=== PATIENT | male | born 2005 | race Caucasian/White ===

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

== ENCOUNTER 2024-09-30 08:28 | Outpatient (AMB) | payer BC, SELFPAY ==
--- OUTSIDE RECORDS SUMMARY | 2024-09-30 08:37 | XMS_ITS | Clinical Summary ---
Author Organization [facility] Address [address] [place] [id number] Phone Care Team Providers Care Barrel Coater Name Role Phone Unavailable Primary Care Provider Unavailabl e Allergies Active Allergy Reactions Criticality Noted Date Comments Penicillin V Rash Low Medications FLUoxetine 10 MG capsuleIndicatio ns:Anxiety disorder, unspecified type,Depression, unspecified depression type TAKE 1 CAPSULE BY MOUTH EVERY DAY IN THE MORNING 90 capsule 01/19/2024 Active Active Problems Problem Noted Date Diagnosed Date Multiple nevi 01/05/2024 Assessment & Plan (01/05/2024 12:05 PM EDT): Reviewed use of sunscreen and avoidance of sun in hottest part of day Baseline exam with dermatology in the next year - + FH of melanoma Anxiety disorder 12/30/2022 Overview (01/05/2024): Positive GAD7 on visit 12/2022 Improved on fluoxetine Assessment & Plan (01/05/2024 12:07 PM EDT): Reviewed weaning off SSRI with Jaycob - plan put into AVS for him to follow to get off the medication Will call/message if gets rebound symptoms Assessment & Plan (09/29/2023 5:00 PM EST): Decreased JONI and subjectively doing well on the fluoxetine 10 mg daily Will continue with med and recheck in 3 - 6 months Reviewed that when time is right to stop need to WEAN OFF and not completely stop at once Assessment & Plan (12/30/2022 3:18 PM EDT): Start fluoxetine 10 mg and set up [facility] visit Depression 12/30/2022 Overview (02/26/2023): Positive PHQ9 on visit 01/20/23 - Pt is reporting some minimal improvement in anxiety and depression since starting medication 3-4 weeks ago, but still is struggling with symptoms 02/25/23 - Vsk- Pt reported that his mood has improved over the last couple of weeks crediting it to his new job as well as the medication. Will continue to work on anxiety as pt's fears of making the wrong decision about higher education is keeping him from moving forward despite knowing what he is interested in Assessment & Plan (03/18/2023 10:03 AM EDT): Patient with long history of anxiety and more recent symptoms of depression in the context of interruption of social and academic development due to the COVID pandemic, medical condition that impacts independence (can't drive), parents are older than most of his peer's parents. Patient will benefit from support in managing symptoms of anxiety, increasing self-confidence and self-esteem, developing his talents, and managing his negative and anxious thhoughts. PLAN: Follow up with [facility] and bridge as necessary to outpatient therapy Patient goal is to improve mood and manage anxiety. Behavioral Recommendations: Pt will build confidence so he can try and explore new experiences Pt will learn strategies to manage anxious thoughts and feelings c. Pt will challenge negative thoughts and engage in pos behaviors/ activities to improve his mood. Assessment & Plan (02/26/2023 3:33 PM EDT): Patient with long history of anxiety and more recent symptoms of depression in the context of interruption of social and academic development due to the COVID pandemic, medical condition that impacts independence (can't drive), parents are older than most of his peer's parents. Patient will benefit from support in managing symptoms of anxiety, increasing self-confidence and self-esteem, developing his talents, and managing his negative and anxious thhoughts. PLAN: Follow up with [facility] and bridge as necessary to outpatient therapy Patient goal is to improve mood and manage anxiety. Behavioral Recommendations: Pt will build confidence so he can try and explore new experiences Pt will learn strategies to manage anxious thoughts and feelings c. Pt will challenge negative thoughts and engage in pos behaviors/ activities to improve his mood. Assessment & Plan (01/23/2023 3:55 PM EDT): Patient with long history of anxiety and more recent symptoms of depression in the context of interruption of social and academic development due to the COVID pandemic, medical condition that impacts independence (can't drive), parents are older than most of his peer's parents. Patient will benefit from support in managing symptoms of anxiety, increasing self-confidence and self-esteem, developing his talents, and managing his negative and anxious thhoughts. PLAN: Follow up with [facility] and bridge as necessary to outpatient therapy Patient goal is to improve mood and manage anxiety. Behavioral Recommendations: Pt will build confidence so he can try and explore new experiences Pt will learn strategies to manage anxious thoughts and feelings c. Pt will challenge negative thoughts and engage in pos behaviors/ activities to improve his mood. 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 Has lateral and vertical nystagmus. Legally blind Assessment & Plan (01/05/2024 12:06 PM EDT): Follow up with ophthalmology Legal blind status qualifies as disability Assessment & Plan (12/30/2022 3:17 PM EDT): Follow up with Dr Bruno ophthamology in [place] Assessment & Plan (08/28/2021 4:30 PM EST): Followed by Dr Bruno for vision and wears glasses. Has lateral and vertical nystagmus. Sees Dr Bruno early every fall. Assessment & Plan (09/17/2018 2:15 PM EST): Followed yearly by Dr Bruno. Assessment & Plan (09/15/2017 8:34 AM EST): Followed by Dr Bruno, last seen apr 2017. Wears glasses and vision stable Resolved Problems Problem Noted Date Diagnosed Date Resolved Date Fracture of phalanx of left ring finger 09/30/2022 12/30/2022 Overview (09/30/2022): 09/30/2022 s/p ORIF BMI (body mass index), pedia tric, > 99% for age 0108/28/2021 12/30/2022 Overview (08/28/2021): Discussed wt gain. Pt is working on eating less junk food and getting more exercise. Assessment & Plan (08/28/2021 4:31 PM EST): Discussed wt gain. Pt is working on eating less junk food and getting more exercise. Rhomboid muscle strain, initial encounter 06/25/2018 09/17/2018 Immunizations Immunization Administration Dates Next Due DTaP 5 03/09/2007, 4,2003,05/19,2003 H1N1 09/13/2009,08/02/2009 HPV Vaccine 9 Valent 10/12/2015,06/12/2015 HPV, Quadrivalent 05/05/2014 Hep A, ped/adol 08/07/2015,05/05/2014 Hep B, ped/adol 2003,2003,2003 Hib (HbOC) 02/27/2004 Hib (PRP-T) 2003,2003,2003 IPV 03/09/2007, 4,2003,03/17 Influenza Split 07/15/2012,06/26/2011,05/23/2010 Influenza, injectable, MDCK, preservative free, quadrivalent 07/06/2023,06/20/2022,08/13/2016 Influenza, injectable, quadrivalent 06/12/2015 Influenza, injectable, quadr ivalent, preservative free 05/25/2021,05/18/2020,05/29/2019,06/09,05/31/2017,05/05/2014,06/22/2013 Influenza, injectable, trivalent 009,06/22/2007,07/22/2006,07/23 MMR 01/23/2004 MMRV 03/09/2007 Meningococcal B Trumenba 12/30/2022,08/28/2021 Meningococcal Conj (Menactra) MCV4P 09/22/2019,0 05/05/2014 Pneumococcal Conjugate 07/23/2004,2002,2003,03/17 Tdap 01/05/2024,05/05/2014 Varicella 01/23/2004 Family History Medical History Relation Name Comments ADD / ADHD Brother Andriy Sosa Anxiety disorder Brother Andriy Sosa Hyperlipidemia Father Devin Sosa Skin cancer Maternal Grandfather Diabetes Maternal Grandmother Breast cancer Mother's Sister Ovarian cancer Mother's Sister Melanoma Paternal Grandmother Relation Name Status Comments Brother Andriy Sosa Alive Brother: Ocular Albinism Father Devin Sosa Alive Father: Alive and well Maternal Grandfather Materna l grandfather: Ocular Albinism Maternal Grandmother Alive Materna l aunt: Scoliosis Mother Evie Sosa Alive Mother: Aliv e and well Mother's Sister Other Family history of Melanoma, Family history of Diabetes mellitus, No family history of Obesity, Family history of Hyperlipidemia, No family history of Migraines, No family history of Cancer, Family history of *Heart Disease, Family history of *CVA/Stroke, Family history of Hypertension, Family history of Allergies, Family history of *Thrombophilia, No family history of Developmental dislocation of hip Paternal Grandmother Sister Bam Sosa Alive Sister: Alive a nd well Social History Tobacco Use Types Packs/Day Years Used Date Smoking Tobacco: Never Smokeless Tobacco: Never Tobacco Cessation:Counseling Given: Yes Comments:Never smoker Alcohol Use Standard Drinks/Week Comments No 0 (1 standard drink = 0.6 oz pur e alcohol) Hunger/Food Answer Date Recorded In the last 12 months, did y ou or your family ever eat less than you felt you should because there wasn't enough money for food? No 01/05/2024 Stable Housing Answer Date Recorded Are you worried that in the next 2 months you may not have stable housing? No 01/05/2024 Transportation Concerns Answer Date Rec orded In the last 12 months, have you or your family ever had to go without healthcare because you didn't have a way to get there? No 01/05/2024 Hazards in Home Answer Date Recorded Think about the place you li ve. Do you have problems with any of the following? Pests (mice or roaches), mold, no/not working smoke detectors, water leaks, no window guards. No 2023 Financing Utilities Answer Date Recorde d In the last 12 months, has t he electric, gas, oil, or water company threatened to shut off your services in your home? No 01/05/2024 Safety at Home Answer Date Recorded Are you or your family worried about feeling saf e in your home? No 01/05/2024 Outside Support Answer Date Recorded Do you feel that you need mo re support from other people or programs to help you care for yourself or your family? No 01/05/2024 Understanding Health Concerns Answer Da te Recorded Do you need help understandi ng your or your child's healthcare needs (diagnosis, medications, plan, etc.)? No 01/05/2024 Financing Health Concerns Answer Date R ecorded In the last 12 months, was t here a time when your child needed to see a doctor or get medications or supplies but could not because of cost? No 01/05/2024 Missing School or Work Answer Date Navjot rded Did you or your child miss s chool or work because of a health problem that could have been avoided? No 01/05/2024 Child Education Answer Date Recorded Do you have concerns about y our/your child's learning or behavior in school, preschool, or daycare? No 01/05/2024 Sex and Gender Information Value Date Recorded Sex Assigned at Male 09/22/2019 3:35 PM EST Legal Sex Male 5:20 PM EDT Gender Identity Male 09/22/2019 3:35 PM EST Sexual Orientation Straight 09/22/2019 3: 35 PM EST Last Filed Vital Signs Vital Sign Reading Time Taken Comments Blood Pressure 120/74 01/05/2024 10:39 AM EDT Pulse 71 01/05/2024 10:39 AM EDT Temperature 35.9 ??C (96.6 ??F) 01/05/2024 10:39 AM E DT Respiratory Rate 16 02/09/2018 11:11 AM EDT Oxygen Saturation 98% 09/11/2011 12:00 AM EST Inhaled Oxygen Concentration - - Weight 90.8 kg (200 lb 3.2 oz) 01/05/2024 10:39 AM EDT Height 189.2 cm (6' 2.5 ) 01/05/2024 10:39 AM ED T Body Mass Index 25.36 01/05/2024 10:39 AM EDT Plan of Treatment Health Maintenance Due Date Last Done Comments Influenza Vaccines (#1) 2024 07/06/20, 06/20/2022, 05/25/2021, Additional history exists COVID-19 Vaccine (2023-2 5 season) 2024 07/06/2023, 06/20/2022, 07/18/2021, Additional history exists DTaP,Tdap,and Td Vaccines (8 - Td or Tdap) 01/04/2034 01/05/2024, 05/05/2014, 03/09/2007, Additional history exists Hepatitis B Vaccines Completed 2003, 2003, 2003 HIB Vaccines Completed 02/27/2004, 08/2002, 2003, Additional history exists Pneumococcal Vaccine Completed 07/23/2004, 2003, 2003, Additional history exists IPV Vaccines Completed 03/09/2007, 11/2003, 2003, Additional history exists MMR Vaccines Completed 03/09/2007, 01/23/2004 Varicella Vaccines Completed 03/09/2007, 01/23/2004 Hepatitis A Vaccines Completed 08/07/2015, 05/05/20 14 HPV Vaccines Completed 10/12/2015, 05/19, 05/05/2014 Meningococcal Vaccine Completed 09/22/2019, 014 Men B Vaccine Completed 12/30/2022, 08/28/2021 Insurance [facility] [place] [address] [facility]
--- OUTSIDE RECORDS SUMMARY | 2024-09-30 08:37 | XMS_ITS | Encounter Summary ---
Author Organization [facility] Address [address] [place] [address] Phone Care Team Providers Care Broom Maker Name Role Phone Rahel Caro MD Primary Care Provider Encounter Details Date Type Department Care Team (Late st Contact Info) Description 04/03/[address] [facility] [address] [place] [address] Social History Tobacco Use Types Packs/Day Years Used Date Smoking Tobacco: Never Comments:Never smoker Sex and Gender Information Value Date Recorded Sex Assigned at Male 09/22/2019 3:35 PM EST Legal Sex Male 5:20 PM EDT Gender Identity Male 09/22/2019 3:35 PM EST Sexual Orientation Straight 09/22/2019 3 :35 PM EST documented as of this encounter Plan of Treatment Not on file documented as of this encounter Visit Diagnoses Not on filedocumented in this encounter Care Teams Broom Maker Relationship Specialty Start Date End Date Rahel Caro MD [address] [place] [address] PCP - General Pediatrics 06/18/23 02/24/24 documented as of this encounter
[2024-09-30 08:56] VITALS: BP 110/80; PULSE 77; O2SAT 99
--- NOTE | 2024-09-30 08:56 | MHC.OFFWIV ---
Intake Vital Signs 09/30/24 08:56 Weight 176 lb BP 110/80 Blood Pressure Location Rt brachial Position Sitting Pulse 77 Pulse Source Pulse Oximeter Pulse Oximetry (%) 99 Oxygen Delivery Method Room Air Intake Visit Reasons: EP-abd pain, constipation, excessive urinating Intake Note: Patient here for abdominal pain, tail bone area pain that have been present on and off for about 1 week. Patient Tobacco Use Status: Never used Tobacco Allergies Penicillins [PENICILLINS] Allergy (Mild, Verified 09/30/24 08:57) Rash Do you need a note to return to daycare/school/sports/work: No HPI HPI Comments History of Present Illness Details 19 y/o male patient who presents to the walk in clinic with c/o Abdominal pain associated with constipation for 1 week. Reports that the symptoms have been on/off. [facility] Medical History (Updated 09/30/24 @ 09:17 by Maureen Hampton NP) Constipation Hx of fracture of leg Surgical History Hx of eye surgery Social History Patient Tobacco Use Status: Never used Tobacco Current occupational status: employed Current occupation: [employer]/ right hand dominant Review of Systems Const All systems reviewed & are unremarkable except as noted in HPI and below Physical Exam Vital Signs: Last Vital Signs Pulse 77 09/30/24 08:56 BP 110/80 09/30/24 08:56 Pulse Ox 99 09/30/24 08:56 Oxygen Delivery Method Room Air 09/30/24 08:56 Const General: cooperative and no acute distress Nutritional Appearance: thin Orientation/consciousness: patient oriented x3 GI Inspection: Yes normal to inspection Palpation (GI): Soft to palpation, not firm, Tenderness to palpation present (GI) (Generalized tenderness), no guarding, not rigid, No hepatosplenomegaly present and no hernias Auscultation: Hypoactive bowel sounds present Rectal Exam - Male: Yes deferred Neuro General: patient oriented x3, gait normal and moves all extremities Assessment & Plan Assessment & Plan (1) Constipation: Code(s): K59.00 - Constipation, unspecified Qualifiers: Constipation type: slow transit constipation Qualified Code(s): K59.01 - Slow transit constipation Plan: Ordered SennaKot Ordered Benefiber Advised to increase Fiber intake Increase water intake. Medications: New wheat dextrin (Benefiber Sugar Free (dextrin)) chew thoroughly before swallowing; do not swallow whole 1 tab PO BEDTIME 60 tabs 0RF K59.01 - Slow transit constipation sennosides (Natural Senna Laxative) 8.6 mg PO DAILY 30 tabs 0RF CONSTIPATION K59.01 - Slow transit constipation Coding Level of Care Code Est Pt Level 4 (35192) Diagnoses Slow transit constipation K59.01 Constipation type: slow transit constipation Time Spent (min) 20
== END 2024-09-30 09:20 | disposition home or self-care (01) ==
PROVIDERS: Visit Provider Nurse Practitioner Family
DX: K59.01 Slow transit constipation (principal)

== ENCOUNTER 2024-11-19 13:38 | Outpatient (AMB) | payer BC, SELFPAY ==
--- NOTE | 2024-11-19 14:20 | MHC.PC.OV ---
Vital Signs 11/19/24 14:22 Height 6 ft 2.02 in Weight 185 lb BMI 23.7 BP 130/80 Blood Pressure Location Lt brachial Position Sitting Pulse 69 Pulse Source Pulse Oximeter Temp 97.5 F Temp Source Temporal Artery Scan Pulse Oximetry (%) 97 Oxygen Delivery Method Room Air Intake Visit Reasons: Establish Care Intake Note: Patient is a new patient here to establish care for Anxiety. [facility] . Medical records have been requested and have not received. Cavalry Scout Required: No Corporate Development Analyst: Not Required per policy Accompanied by: Self / Same As Patient Allergies Penicillins [PENICILLINS] Allergy (Mild, Verified 11/19/24 14:36) Rash Medication List - Last Reconciled 11/19/24 by MIRIAM Gilbert No Known Home Meds Tobacco use date assessed: 11/19/24 Dental Screening Dental Screen Date: 11/19/24 Did you have a dental visit in the last 12 months?: Yes Did you have a dental problem in the last 6 months where you did not have access to dental care?: No Was dental information given to patient?: Patient has dentist HPI Establish Care HPI Details [place] [facility] Last visit: not sure Last PE: January he had a physical Specialist: ophthalmology OBGYN:n/a Medications: Family HX: ocular albinism, spasmus nutans mother ocular albinism, Problem: Reports that he does not have issues just establishing care Patient denies shortness of breath, chest pain, heart palpitation and dizziness Denies abdominal pain or change in bowel habits Denies any urinary symptoms PFSH Medical History (Updated 11/28/24 @ 13:13 by MIRIAM Gilbert) Spasmus nutans Ocular albinism History of broken finger Constipation Hx of fracture of leg Surgical History (Updated 11/19/24 @ 14:29 by YOLANDA Tello) History of surgery Hx of eye surgery Family History (Updated 11/28/24 @ 13:26 by MIRIAM Gilbert) Mother Ocular albinism Social History (Updated 11/19/24 @ 14:29 by YOLANDA Tello) Housing: House Alcohol intake: current Alcohol intake frequency: a few times a month Patient Tobacco Use Status: Never used Tobacco e-Cigarette/Vaping Use: Never Used Second Hand Smoke Exposure: No service: No Current occupational status: employed Current occupation: [employer]/ right hand dominant Cognitive needs: No Hearing needs: No Vision needs: Yes (Glasses) Questionnaire PHQ-9 Over the last 2 weeks, how often have you been bothered by any of the following problems? 1. Little interest or pleasure in doing things: not at all 2. Feeling down, depressed, or hopeless: not at all 3. Trouble falling or staying asleep, or sleeping too much: not at all 4. Feeling tired or having little energy: not at all 5. Poor appetite or overeating: not at all 6. Feeling bad about yourself - or that you are a failure or have let yourself or your family down: not at all 7. Trouble concentrating on things, such as reading the newspaper or watching television: not at all 8. Moving or speaking so slowly that other people could have noticed. Or the opposite - being so fidgety or restless that you have been moving around a lot more than usual: not at all 9. Thoughts that you would be better off or of hurting yourself in some way: not at all Total score: 0 Depression Screening Interpretation: Negative Depression Screening Done: Yes Source: Developed by Drs. Torrey Wyatt, Jocelynn Merino, Ramirez Cordova and colleagues, with an educational monet from [employer]. Thrive Questionnaire Date Thrive assessed: 11/19/24 I am a: Patient What is your living situation today?: I have a steady place to live Within the past 12 months, did the food you bought not last and you didn't have the money to get more?: Never true Within the past 12 months, did you worry whether your food would run out before you got money to buy more?: Never true Do you have trouble paying for medicines?: No Do you have trouble getting transportation to medical appointments?: No Do you have trouble paying your heating and electricity bill?: No Do you have trouble taking care of your child, family member or friend?: I choose not to answer this question Do you have trouble with day-to-day activities such as bathing, preparing meals, shopping, managing finances, etc.?: No Are you currently unemployed and looking for a job?: No Are you interested in more education?: I choose not to answer this question Please select the resources that you would like help with: None Currently or been in a relationship where the following occur: No concerns reported THRIVE Score: 0 AUDIT C Alcohol Use Questionnaire (AUDIT-C) 1. How often do you have a drink containing alcohol?: 2-4 times a month 2. How many drinks containing alcohol do you have on a typical day when you are drinking?: 3 or 4 3. How often do you have six or more drinks on one occasion?: Less than monthly Total Score: 4 JONI-7 AMB Questionnaire JONI-7 Date JONI - 7 assessed: 11/19/24 Feeling nervous, anxious, or on edge: 1 = Several days Not being able to stop or control worryin = Not at all Worrying too much about different things: 1 = Several days Trouble relaxin = Not at all Being so restless that it is hard to sit still: 0 = Not at all Becoming easily annoyed or irritable: 0 = Not at all Feeling afraid as if something awful might happen: 0 = Not at all Total JONI-7 score (0-4 normal; 5-9 mild; 10-14 moderate; 15-21 severe): 2 Source: Developed by Drs. Torrey Wyatt, Jocelynn Merino, Ramirez Cordova and colleagues, with an educational monet from [employer]. Physical exam (Primary Care) Vital Signs: Last Vital Signs Temp 97.5 F 11/19/24 14:22 Pulse 69 11/19/24 14:22 BP 130/80 11/19/24 14:22 Pulse Ox 97 11/19/24 14:22 Oxygen Delivery Method Room Air 11/19/24 14:22 BMI result Body Mass Index 23.7 Tobacco/Smoking Status: Tobacco use Status Tobacco use date assessed 11/19/24 11/19/24 14:30 Patient Tobacco Use Status Never used Tobacco 11/19/24 14:30 e-Cigarette/Vaping Use Never Used 11/19/24 14:30 PHQ-9: PHQ-9 Score PHQ-9: Total score 0 11/19/24 14:41 Depression Screening Interpretation: Negative Thrive Assessment: Date of Thrive Assessment Date Thrive assessed 11/19/24 11/19/24 14:30 Currently or been in a relationship where the following occur: No concerns reported Coding Level of Care Code New Pt Level 3 (83464) Diagnoses 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 Follow up with Ophthalmology as scheduled to optimize vision Plan Patient to complete labs as soon as possible for evaluation. Patient to return in 3 months for physical Orders: Orders Comprehensive [place]. Panel Fast 11/19/24 Z00.00 - Encounter for general adult medical examination without abnormal findings Lipid Panel 11/19/24 Z00. - Encounter for general adult medical examination without abnormal findings Vitamin D 25-OH Total 11/19/24 Z00.00 - Encounter for general adult medical examination without abnormal findings Complete Blood Count Auto Diff 11/19/24 Z00. - Encounter for general adult medical examination without abnormal findings UA CC w/rflx Micro + Cult 11/19/24 Z00. - Encounter for general adult medical examination without abnormal findings TSH reflex Free T4 11/19/24 Z00.00 - Encounter for general adult medical examination without abnormal findings
[2024-11-19 14:22] VITALS: BP 130/80; PULSE 69; TEMP 36.4; O2SAT 97; BMI 23.7
--- OUTSIDE RECORDS SUMMARY | 2024-11-19 15:28 | XMS_ITS | Clinical Summary ---
Author Organization [facility] Address [address] [place] [id number] Phone Care Team Providers Care Community Relations Liaison Name Role Phone Unavailable Primary Care Provider [...] and anxious thhoughts. PLAN: Follow up with [facility] and bridge as necessary to outpatient therapy [...] and anxious thhoughts. PLAN: Follow up with [facility] and bridge as necessary to outpatient therapy [...] and anxious thhoughts. PLAN: Follow up with [facility] and bridge as necessary to outpatient therapy [...] Follow up with Dr Bruno ophthamology in [place] Assessment & Plan (08/28/2021 4:30 PM [...] Grandmother Alive Materna l aunt: Scoliosis Mother Evei Sosa Alive Mother: Aliv e and well [...] Men B Vaccine Completed 12/30/2022, 08/28/2021 Insurance [facility] [place] [id number] [facility]
--- OUTSIDE RECORDS SUMMARY | 2024-11-19 15:28 | XMS_ITS | Encounter Summary ---
Author Organization [facility] Address [address] [place] [address] Phone Care Team Providers Care Embossograph Operator Name Role Phone Rahel Caro MD Primary Care Provider Encounter Details Date Type Department Care Team (Late st Contact Info) Description 04/03/2017 Conversion Encounter [facility] [address] [place] [address] Social History Tobacco Use Types Packs/Day Years [...] on filedocumented in this encounter Care Teams Embossograph Operator Relationship Specialty Start Date End Date Rahel Caro MD [address] [place] [address] PCP - General Pediatrics 06/18/23 02/24/24 documented as of this encounter
== END 2024-11-19 14:49 | disposition home or self-care (01) ==
LOC: HO.HMCH 13:38
PROVIDERS: PCP Pediatrics
DX: E70.319 Ocular albinism, unspecified (principal); F98.4 Stereotyped movement disorders

== ENCOUNTER → 2024-11-19 13:38 | Outpatient (BNVA) | payer BC, SELFPAY | PROVIDERS: PCP Pediatrics ==

== ENCOUNTER 2025-01-04 08:30 | Emergency (ER) | payer BC, SELFPAY ==
--- NOTE | 2025-01-04 | ECG_ITS ---
Test Reason : CHEST PAIN Blood Pressure : */* mmHG Vent. Rate : 62 BPM Atrial Rate : 62 BPM P-R Int : 130 ms QRS Dur : 102 ms QT Int : 386 ms P-R-T Axes : 9 78 53 degrees QTcB Int : 391 ms Normal sinus rhythm Normal ECG No previous ECGs available Referred By: Generic ED Physician Electronically Signed By: Adryan Leal
--- NOTE | ~2025-01-04 | XR_ITS ---
EXAMINATION: XR CHEST 1 VIEW HISTORY: chest pain COMPARISON: There are no prior studies for comparison. FINDINGS: A single AP portable view of the chest performed at 9:23 AM is submitted. The lungs are expanded and clear. There is no pleural effusion, pneumothorax, or pulmonary vascular congestion. The heart is normal in size. The bones are intact. XR/XR chest 1V IMPRESSION: Clear lungs. Electronically signed by: Torrey Paredes MD 01/04/2025 09:27 AM EDT
[2025-01-04 08:49] VITALS: BP 115/72; PULSE 61; RESP 18; TEMP 36.4; O2SAT 98; BMI 25.3
[2025-01-04 09:09] LABS: MANUAL DIFF FLAG NO
[2025-01-04 09:10] LABS: Basophils Percent Auto 0.8 % (0-2); Eosinophils Absolute Auto 0.1 X10*3/uL (0.0-0.4); Eosinophils Percent Auto 2.3 % (0-4); Hematocrit 41.8 % (42.0-52.0); Hemoglobin 14.9 g/dl (14.0-18.0); Lymphocytes Absolute Auto 1.9 X10*3/uL (1.2-4.9); Mean Corpuscular HGB Conc 35.6 g/dl (31.0-36.0); Mean Corpuscular Hemoglobin 29.6 pg (27.0-33.0); Mean Corpuscular Volume 83.1 fL (80.0-98.0); Mean Platelet Volume 10.3 fL (9.4-12.4); Monocytes Absolute Auto 0.3 X10*3/uL (0.1-1.2); Monocytes Percent Auto 7.7 % (2-11); Neutrophils Absolute Auto 1.5 x10*3/uL (2.0-8.3); Neutrophils Percent Auto 39.2 % (45-73); Platelet Count 199 X10*3/uL (160-400); Red Blood Count 5.03 X10*6/uL (4.60-5.80); Red Cell Distribution Width 12.4 % (11.0-16.0); White Blood Count 3.9 X10*3/uL (4.8-10.8)
--- NOTE | 2025-01-04 09:13 | ED_ITS ---
HPI - Chest Pain General Chief Complaint: Chest Pain Stated Complaint: Chest pain L side Time Seen by Provider: 01/04/25 08:56 Source: patient and family Mode of arrival: ambulatory Limitations: no limitations History of Present Illness ED Provider: DR. Thompson HPI narrative: 19-year-old male came in for evaluation of left-sided chest pain started since last night, pain has been constant localized to the left side of the chest with no radiation, pain is worse when taking a deep breath or moving his chest, no strenuous activity, no heavy lifting. No recent travel, no lower extremity swelling or tenderness. reports smoking marijuana no using any other drugs. Related Data Home Medications ?Medication ?Instructions ?Recorded ?Confirmed No Known Home Meds 11/19/24 11/19/24 Allergies Allergy/AdvReac Type Severity Reaction Status Date / Time Penicillins [PENICILLINS] Allergy Mild Rash Verified 01/04/25 08:52 Review of Systems 2 Review of Systems: All other systems are reviewed and are negative Constitutional: Reports as per HPI and Reports no additional constitutional complaints Eyes: Reports as per HPI and Reports no additional eye complaints Reports system reviewed and no additional complaints, except as documented Cardiovascular: Reports as per HPI and Reports no additional cardiovascular complaints Respiratory: Reports as per HPI and Reports no additional respiratory complaints Gastrointestinal: Reports as per HPI and Reports no additional gastrointestinal complaints Genitourinary: Reports no additional female genitourinary complaints Musculoskeletal: Reports no additional musculoskeletal complaints Skin/Breast: Reports system reviewed and no additional complaints, except as docu Psychiatric: Reports no additional psychiatric complaints Endocrine: Reports no additional endocrine complaints Hematologic/Lymphatic: Reports no additional hematologic/lymphatic complaints Allergic/Immunologic: Reports no additional allergic/immunologic complaints Reports system reviewed and no additional complaints, except as documented and Reports Abnormal speech present [facility] Past Medical History Medical History Spasmus nutans Ocular albinism History of broken finger Constipation Hx of fracture of leg Surgical History History of surgery Hx of eye surgery Family History Family History Mother Ocular albinism Social History Social History Housing: House Alcohol intake: current Alcohol intake frequency: holidays/special occasions only Patient Tobacco Use Status: Never used Tobacco Smoked in Last 30 Days: No e-Cigarette/Vaping Use: Never Used Second Hand Smoke Exposure: No Use of substances other than those prescribed or required for medical reasons: Yes Substance Use Type: Marijuana Advance Directives: No Advance Directives Information Provided: No Do you have a plan to hurt others: No Plan service: No Current occupational status: employed Current occupation: [employer]/ right hand dominant Cognitive needs: No Hearing needs: No Vision needs: Yes (Glasses) Physical Exam 2 Vital Signs: Vital Signs: Last Vital Signs Temp 97.5 F 01/04/25 08:49 Pulse 61 01/04/25 08:49 Resp 18 01/04/25 08:49 BP 115/72 01/04/25 08:49 Pulse Ox 98 01/04/25 08:49 O2 Del Method Room Air 01/04/25 08:49 BMI result Body Mass Index 25.3 Vital signs have been reviewed and appear to be correct. Blood pressure elevated. Heart rate normal. Respiratory rate normal. Temperature normal. Oxygen saturation normal. Appearance: Alert. Oriented X3. No acute distress. Head: Normal external exam. Normocephalic. Atraumatic. No Bravo signs noted. No raccoon eyes noted Eyes: PERRLA. EOMI. Conjunctiva and sclera normal. Eyelids normal. ENT: TM's Normal. Pharynx normal. Uvula midline. Moist mucous membranes. No trismus noted. No drooling noted. No muffled voice noted. Neck: Normal inspection. Neck supple. FROM. No adenopathy. Thyroid Normal. No meningeal signs. No neck mass noted. CVS: Normal heart rate and rhythm. Heart sound normal. No murmurs noted. Pulses normal throughout. Respiratory: No respiratory distress. Painless inspiration. Breath sounds normal. No wheezes/rales/rhonchi noted. Chest nontender. No accessory muscle usage noted or decreased air movement noted. Abdomen: Soft and nontender. Bowel sounds normal in all 4 quadrants. No distention noted. No organomegaly noted. No visible injury noted. Back: No CVA tenderness. Full range of motion noted. Skin: Skin warm and dry. Normal skin color. Normal skin turgor. No rashes/lesions/lacerations noted. Extremities: No lower extremity edema. Extremities exhibit normal range of motion. Extremities nontender. Neuro: Oriented X 3. Cranial nerve exam: II-XII are grossly intact No motor deficit. No sensory deficit. Reflexes normal. Course Reevaluation(s) Reevaluation #1: Left-sided chest pain improved with ibuprofen. Unremarkable labs, EKG reveals no acute ischemic changes. Time: 12:00 Medical Decision Making Differential Diagnosis Differential Diagnoses: The differential diagnosis associated with the presentation includes ( ACS, pulmonary embolism, pleurisy, pneumonia, pneumothorax, pleural effusion, Chest wall pain.) Admission/Observation Consideration of admission/observation: Escalation of care including admission/observation considered Lab Data MDM Lab Attestation statement: I reviewed the patient's lab results. 01/04/25 09:05 01/04/25 09:05 Labs: Lab Results 01/04/25 Range/Units 09:05 WBC 3.9 L (4.8-10.8) X10*3/uL RBC 5.03 (4.60-5.80) X10*6/uL Hgb 14.9 (14.0-18.0) g/dl Hct 41.8 L (42.0-52.0) % MCV 83.1 (80.0-98.0) fL MCH 29.6 (27.0-33.0) pg MCHC 35.6 (31.0-36.0) g/dl RDW 12.4 (11.0-16.0) % Plt Count 199 (160-400) X10*3/uL MPV 10.3 (9.4-12.4) fL Immature Gran % (Auto) 0.0 (0.0-0.4) % Neut % (Auto) 39.2 L (45-73) % Lymph % (Auto) 50.0 H (20-40) % [place] % (Auto) 7.7 (2-11) % Eos % (Auto) 2.3 (0-4) % Baso % (Auto) 0.8 (0-2) % Lymph # (Auto) 1.9 (1.2-4.9) X10*3/uL [place] # (Auto) 0.3 (0.1-1.2) X10*3/uL Eos # (Auto) 0.1 (0.0-0.4) X10*3/uL Baso # (Auto) 0.0 (0.0-0.2) X10*3/uL Abs Immat Gran (auto) 0.00 (0.00-0.03) X10*3/uL Absolute Neuts (auto) 1.5 L (2.0-8.3) x10*3/uL Absolute Nucleated RBC 0.000 (0.0-0.012) X10*3/uL Nucleated RBC % (auto) 0.0 (0.0-0.2) /100WBC Independent Interpretation I performed an independent interpretation of an: EKG ( Normal sinus rhythm at 62 beats per minutes, normal intervals, no ST-T changes.) and Plain X-Ray ( Chest: No acute intrathoracic pathology.) Radiology Impression Discussion of test interpretation with radiology: I have reviewed the radiologist's reading. Scores Heart Score History: -0- slightly suspicious ECG: -0- normal Age: -0- < or = 45 Risk factory: -0- no risk factors known Troponin: -0- < or = normal limit Score: 0 Risk: 1.7% Discharge Plan Discharge Clinical Impression: Chest pain Patient Disposition: Home, Self-Care Instructions: Chest Pain (ED) Prescriptions: No Action No Known Home Meds Referrals: Oren Rojo FNP-C [Primary Care Provider] - Print Language: Luxembourgish
--- OUTSIDE RECORDS SUMMARY | 2025-01-04 09:23 | XMS_ITS | Clinical Summary ---
Author Organization [facility] Address [address] [place] [phone] Phone Care Team Providers Care Distribution Center Assistant Name Role Phone Unavailable Primary Care Provider [...] and anxious thhoughts. PLAN: Follow up with [facility] and bridge as necessary to outpatient therapy [...] and anxious thhoughts. PLAN: Follow up with [facility] and bridge as necessary to outpatient therapy [...] and anxious thhoughts. PLAN: Follow up with [facility] and bridge as necessary to outpatient therapy [...] Follow up with Dr Bruno ophthamology in [place] Assessment & Plan (08/28/2021 4:30 PM EST): [...] Rhomboid muscle strain, initial encounter 06/25/2018 09/17/2018 Encounters Date Type Department Care Team Description 12/09/2024 Telephone [facility] - [address] [address] Ema Wallace MD Medical Records from Last 3 Months Immunizations Immunization Administration Dates Next Due DTaP [...]
--- OUTSIDE RECORDS SUMMARY | 2025-01-04 09:23 | XMS_ITS | Encounter Summary ---
Author Organization [facility] Address [address] [place] [address] Phone Care Team Providers Care Technical Solution Architect Name Role Phone Rahel Caro MD Primary Care Provider [phone] Encounter Details Date Type Department Care Team (Late st Contact Info) Description 04/03/2017 Conversion Encounter [facility] [address] [place] [address] Social History Tobacco Use Types Packs/Day Years Used Date Smoking Tobacco: Never Comments:Never smoker Sex and Gender Information Value Date Recorded Sex Assigned at Male 09/22/2019 3:35 PM EST Legal Sex Male 5:20 PM EDT Gender Identity Male 09/22/2019 3:35 PM EST Sexual Orientation Straight 09/22/2019 3: 35 PM EST documented as of this encounter Plan of Treatment Not on file documented as of this encounter Visit Diagnoses Not on filedocumented in this encounter Care Teams Technical Solution Architect Relationship Specialty Start Date End Date Rahel Caro MD [address] [place] [address] PCP - General Pediatrics 06/18/23 02/24/24 documented as of this encounter
[2025-01-04 09:24] LABS: Anion Gap 12 (12-20); Blood Urea Nitrogen 15 mg/dL (9-16); Calcium 9.5 mg/dL (8.4-10.2); Carbon Dioxide 30 mmol/L (22-29); Chloride 104 mmol/L (96-108); Creatinine Clr Calc Pharmacy 159.8; Estimated Glomerular Filt Rate > 60; Glucose Random 88 mg/dL (60-115); Potassium 3.7 mmol/L (3.3-5.1); Sodium 142 mmol/L (135-145)
[2025-01-04 09:34] LABS: Troponin-I High Sensitivity < 2.7 ng/L (<3.5-35.0)
[2025-01-04] MEDS: Ibuprofen 600 MG TABLET PO (09:41)
--- NOTE | 2025-01-04 09:48 | PC.NURSE ---
patient a&ox3, labs drawn, ekg performed, cardiac care unit nurse applied, cxr performed, pt medicated for pain per order, family at bedside, call silverman within reach, plan of care ongoing
[2025-01-04 09:49] LABS: D Dimer High Sensitivity < 150 NG/ML
[2025-01-04 11:34] VITALS: BP 109/61; PULSE 58; RESP 16; TEMP 36.7; O2SAT 96
[2025-01-04 11:50] VITALS: BP 118/69; PULSE 54; RESP 18; O2SAT 97
--- NOTE | 2025-01-04 11:51 | PC.NURSE ---
patient a&ox3, vss, court monitor intact- snr on monitor, pt states his pain remains the same around 5-01/25, call silverman within reach, plan of care ongoing
[2025-01-04 12:24] LABS: Troponin-I High Sensitivity < 2.7 ng/L (<3.5-35.0)
[2025-01-04 13:46] VITALS: BP 110/66; PULSE 62; RESP 18; TEMP 36.6; O2SAT 97
== END 2025-01-04 13:46 | disposition home or self-care (01) ==
PROVIDERS: Emergency Provider Emergency Medicine
DX: R07.89 Other chest pain (principal); Z79.899 Other long term (current) drug therapy
CPT/HCPCS: 36415; 71045; 80048; 84484; 85025; 85379; 93005; 99283; 99285

== ENCOUNTER → 2025-01-04 08:35 | Outpatient (BNV) | payer BC, SELFPAY | PROVIDERS: Emergency Provider Emergency Medicine; Visit Provider Internal Medicine Cardiovascular Disease | DX: R07.9 Chest pain, unspecified (principal) | CPT/HCPCS: 93010 ==

== ENCOUNTER → 2025-01-04 09:19 | Outpatient (BNV) | payer BC, SELFPAY | PROVIDERS: Emergency Provider Emergency Medicine; Visit Provider Radiology Diagnostic Radiology | DX: R07.9 Chest pain, unspecified (principal) | CPT/HCPCS: 71045 ==

== ENCOUNTER 2025-04-14 13:36 | Outpatient (AMB) | payer BC, SELFPAY ==
[2025-04-14 13:48] VITALS: BP 120/60; PULSE 74; RESP 18; TEMP 36.3; O2SAT 96; BMI 24.7
--- NOTE | 2025-04-14 13:48 | A.OFFPC_ITS ---
Vital Signs 04/14/25 13:48 Height 6 ft 2 in Weight 192 lb 4 oz BMI 24.7 BP 120/60 Blood Pressure Location Rt brachial Position Sitting Respiration 18 Pulse 74 Pulse Source Pulse Oximeter Temp 97.3 F Temp Source Temporal Artery Scan Pulse Oximetry (%) 96 Oxygen Delivery Method Room Air Intake Visit Reasons: Annual Exam Office Machinery Or Equipment Installer Required: No Accompanied by: Self / Same As Patient Allergies Penicillins (PENICILLINS) Allergy (Mild, Verified 04/14/25 14:18) Rash Medication List - Last Reconciled 04/14/25 by MIRIAM Gilbert No Known Home Meds Tobacco use date assessed: 04/14/25 Dental Screening Dental Screen Date: 04/14/25 Did you have a dental visit in the last 12 months?: Yes Did you have a dental problem in the last 6 months where you did not have access to dental care?: No Was dental information given to patient?: Patient has dentist HPI Annual Exam HPI Details The patient is a 20-year-old male presenting for annual physical Dentist:up to date Eye: a little over a year-up to date Snellen: Right: Left: Corrected vision: yes glasses STI screening: n/a Colonoscopy:n/a Pap Smer:n/a PHQ-9: Flu:usually get this yearly COVID: x4 Tdap: 2023 Diet:regular, reports that he could eat out less, three meals a day Exercise: Reports going for lot of walks and bike rides The patient is a 20-year-old male presenting for a wellness visit. He has not completed his preordered labs as yet. Blood work from ER visit discussed with patient. Reports going to the emergency room due to chest pain while he was at work. The patient experienced a sharp pain in the chest while at work, which led to a hospital visit where it was diagnosed as a muscle strain. The pain was concerning due to its location, prompting the hospital visit. The patient has not completed the comprehensive lab work ordered previously, which includes cholesterol and liver function tests. The patient is advised to complete these labs to provide a more comprehensive health assessment. The patient reports smoking marijuana daily, typically one blunt at night, and consuming alcohol occasionally, primarily on weekends. He maintains a diet that could be improved by reducing eating out and reports regular physical activity through walking and biking. 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 [facility] Medical History Spasmus nutans Ocular albinism History of broken finger Constipation Hx of fracture of leg Surgical History History of surgery Hx of eye surgery Family History Mother Ocular albinism Social History Housing: House Alcohol intake: current Alcohol intake frequency: holidays/special occasions only Patient Tobacco Use Status: Never used Tobacco e-Cigarette/Vaping Use: Never Used Second Hand Smoke Exposure: No Substance Use Type: Marijuana service: No Current occupational status: employed Current occupation: [employer]/ right hand dominant Cognitive needs: No Hearing needs: No Vision needs: Yes (Glasses) Questionnaire PHQ-9 Over the last 2 weeks, how often have you been bothered by any of the following problems? 1. Little interest or pleasure in doing things: not at all 2. Feeling down, depressed, or hopeless: not at all 3. Trouble falling or staying asleep, or sleeping too much: not at all 4. Feeling tired or having little energy: not at all 5. Poor appetite or overeating: not at all 6. Feeling bad about yourself - or that you are a failure or have let yourself or your family down: not at all 7. Trouble concentrating on things, such as reading the newspaper or watching television: not at all 8. Moving or speaking so slowly that other people could have noticed. Or the opposite - being so fidgety or restless that you have been moving around a lot more than usual: not at all 9. Thoughts that you would be better off or of hurting yourself in some way: not at all Total score: 0 Depression Screening Interpretation: Negative Depression Screening Done: Yes Source: Developed by Drs. Torrey Wyatt, Jocelynn Merino, Ramirez Cordova and colleagues, with an educational monet from [employer]. Thrive Questionnaire Date Thrive assessed: 04/14/25 I am a: Patient What is your living situation today?: I have a steady place to live Within the past 12 months, did the food you bought not last and you didn't have the money to get more?: Never true Within the past 12 months, did you worry whether your food would run out before you got money to buy more?: Never true Do you have trouble paying for medicines?: No Do you have trouble getting transportation to medical appointments?: No Do you have trouble paying your heating and electricity bill?: No Do you have trouble taking care of your child, family member or friend?: I choose not to answer this question Do you have trouble with day-to-day activities such as bathing, preparing meals, shopping, managing finances, etc.?: No Are you currently unemployed and looking for a job?: No Are you interested in more education?: I choose not to answer this question Please select the resources that you would like help with: None Currently or been in a relationship where the following occur: No concerns reported THRIVE Score: 0 AUDIT C Alcohol Use Questionnaire (AUDIT-C) 1. How often do you have a drink containing alcohol?: 2-4 times a month 2. How many drinks containing alcohol do you have on a typical day when you are drinking?: 3 or 4 3. How often do you have six or more drinks on one occasion?: Less than monthly Total Score: 4 JONI-7 AMB Questionnaire JONI-7 Date JONI - 7 assessed: 04/14/25 Feeling nervous, anxious, or on edge: 1 = Several days Not being able to stop or control worryin = Not at all Worrying too much about different things: 1 = Several days Trouble relaxin = Not at all Being so restless that it is hard to sit still: 0 = Not at all Becoming easily annoyed or irritable: 0 = Not at all Feeling afraid as if something awful might happen: 0 = Not at all Total JONI-7 score (0-4 normal; 5-9 mild; 10-14 moderate; 15-21 severe): 2 Source: Developed by Drs. Torrey Wyatt, Jocelynn Merino, Ramirez Cordova and colleagues, with an educational monet from [employer]. Review of Systems Const Denies headache(s) Eyes Denies loss of vision ENT Denies vertigo, Denies dizziness, Denies headache(s) and Denies sore throat Card Denies chest pain, Denies leg edema and Denies lightheadedness Resp Denies cough, Denies hemoptysis and Denies wheezing GI Denies abdominal pain, Denies melena, Denies constipation, Denies diarrhea and Denies vomiting Denies dysuria, Denies urinary frequency and Denies urinary urgency Musc Denies arthralgias, Denies joint swelling, Denies numbness and Denies tingling Neuro Denies Abnormal speech present, Denies behavioral changes, Denies vertigo, Denies dizziness, Denies headache(s), Denies loss of vision, Denies memory loss, Denies numbness and Denies tingling Psych Denies anxiety, Denies behavioral changes, Denies depression, Denies memory loss and Denies panic attacks [place]/Lymph Denies easy bleeding and Denies easy bruising Aller/Immun Denies wheezing Physical exam (Primary Care) Vital Signs: Last Vital Signs Temp 97.3 F 04/14/25 13:48 Pulse 74 04/14/25 13:48 Resp 18 04/14/25 13:48 BP 120/60 04/14/25 13:48 Pulse Ox 96 04/14/25 13:48 Oxygen Delivery Method Room Air 04/14/25 13:48 BMI result Body Mass Index 24.7 Tobacco/Smoking Status: Tobacco use Status Tobacco use date assessed 04/14/25 04/14/25 13:54 Patient Tobacco Use Status Never used Tobacco 04/14/25 13:54 e-Cigarette/Vaping Use Never Used 04/14/25 13:54 PHQ-9: PHQ-9 Score PHQ-9: Total score 0 04/14/25 14:19 Depression Screening Interpretation: Negative Thrive Assessment: Date of Thrive Assessment Date Thrive assessed 04/14/25 04/14/25 13:54 Currently or been in a relationship where the following occur: No concerns reported Const General: healthy appearing, no acute distress, alert and awake Nutritional Appearance: well nourished Orientation/consciousness: oriented to person, oriented to place and oriented to time HENMT Ears: TM's normal bilaterally General nose exam: Normal nasal mucous membranes and turbinates present Eyes Conjunctivae: conjunctivae normal Sclerae: sclerae normal Pupils: Equal, round and reactive pupils present Neck Neck: Yes no lymphadenopathy and Yes no JVD Thyroid: Thyroid normal Carotids: no bruits Resp Effort & Inspection: normal respiratory effort and not tachypneic Auscultation: no crackles, no rales, no rhonchi and no wheezes Cardio Rate: regular rate Rhythm: regular rhythm Heart sounds: no murmurs and normal S1 and S2 GI Palpation (GI): Soft to palpation, nontender, no hepatomegaly and no splenomegaly Auscultation: normal bowel sounds Skin General skin exam: no rashes or lesions noted and dry skin Neuro General: oriented to person, oriented to place and oriented to time Cranial nerves: Yes Equal, round and reactive pupils present Speech: No Abnormal speech present Gait exam (Neuro): Normal gait present Motor exam (neuro): no tremor noted Extrem Right upper extremity: full ROM Left upper extremity: full ROM Right lower extremity: full ROM; no edema Left lower extremity: full ROM; no edema Psych Mental Status: mental status grossly normal Speech and movement: Normal speech and movement present Affect: normal affect Attitude: cooperative Thought process: Normal thought process present Results Reviewed Results Reviewed: Laboratory Tests 01/04/25 01/04/25 09:05 11:49 WBC 3.9 L RBC 5.03 Hgb 14.9 Hct 41.8 L MCV 83.1 MCH 29.6 MCHC 35.6 RDW 12.4 Plt Count 199 MPV 10.3 Immature Gran % (Auto) 0.0 Neut % (Auto) 39.2 L Lymph % (Auto) 50.0 H [place] % (Auto) 7.7 Sodium 142 Potassium 3.7 Chloride 104 Carbon Dioxide 30 H Anion Gap 12 BUN 15 Creatinine 0.85 Estim Creat Clear Calc 159.8 Estimated GFR > 60 Random Glucose 88 Calcium 9.5 Troponin I High Sens < 2.7 < 2.7 Coding Level of Care Code Est Pt Prev Care [id number]([id number]) Diagnoses Annual physical exam Z00.00 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 Encouraged to complete preordered labs to further evaluate. Patient will be starting school this semester. T-spot added to labs incase his school requires it. 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 Maintain adequate hydration. Plan Encouraged the patient to complete preordered labs for a more complete asse ssment of his health. Orders: Orders T Spot TB 04/14/25 Z11.1 - Encounter for screening for respiratory tuberculosis
--- OUTSIDE RECORDS SUMMARY | 2025-04-14 14:22 | XMS_ITS | Clinical Summary ---
Author Organization [facility] Address [address] [place] [id number] Phone Care Team Providers Care Associate Professor Of Biblical Studies Name Role Phone Unavailable Primary Care Provider [...] Follow up with Dr Bruno ophthamology in [place] Assessment & Plan (08/28/2021 4:30 PM EST): [...] 71 01/05/2024 10:39 AM EDT Temperature 35.9 C (96.6 F) 01/05/2024 10:39 AM EDT Respiratory Rate 16 02/09/2018 11:11 AM EDT Oxygen Saturation 98% 09/11/2011 12:00 AM EST Inhaled Oxygen Concentration - - Weight 90.8 kg (200 lb 3.2 oz) 01/05/2024 10:39 AM EDT Height 189.2 cm (6' 2.5 ) 01/05/2024 10:39 AM ED T Body Mass Index 25.36 01/05/2024 10:39 AM EDT Plan of Treatment Health Maintenance Due Date Last Done Comments COVID-19 Vaccine (2023- 5 season) 2024 07/06/2023, 06/20/2022, 07/18/2021, Additional history exists Influenza Vaccines (#1) 2025 07/06/20, 06/20/2022, 05/25/2021, Additional history exists DTaP,Tdap,and Td Vaccines (8 [...]
--- OUTSIDE RECORDS SUMMARY | 2025-04-14 14:22 | XMS_ITS | Encounter Summary ---
Author Organization [facility] Address [address] [place] [address] Phone Care Team Providers Care Crm Marketing Manager Name Role Phone Rahel Caro MD Primary Care Provider Encounter Details Date Type Department Care Team (Late st Contact Info) Description 04/03/2017 Conversion Encounter [facility] [address] [place] [address] Social History Tobacco Use Types Packs/Day Years [...] on filedocumented in this encounter Care Teams Crm Marketing Manager Relationship Specialty Start Date End Date Rahel Caro MD [address] [place] [address] PCP - General Pediatrics 06/18/23 02/24/24 documented as of this encounter
== END 2025-04-14 14:47 | disposition home or self-care (01) ==
LOC: HO.HMCH 13:37
DX: Z00.00 Encounter for general adult medical examination without abnormal findings (principal); E70.319 Ocular albinism, unspecified; F98.4 Stereotyped movement disorders

== ENCOUNTER 2025-06-10 08:24 | Outpatient (AMB) | payer BC, SELFPAY ==
--- NOTE | 2025-06-10 08:25 | MHC.OFFWIV ---
Intake Vital Signs 06/10/25 08:26 Height 6 ft 2 in Weight 189 lb BMI 24.3 BP 110/68 Blood Pressure Location Lt brachial Position Sitting Pulse 74 Pulse Source Pulse Oximeter Temp 98.2 F Temp Source Oral Pulse Oximetry (%) 96 Intake Visit Reasons: EP-sore throat, cough, headaches Intake Note: Patient presents with c/o cough, sore throat, headache x2 weeks Patient Tobacco Use Status: Never used Tobacco Allergies Penicillins (PENICILLINS) Allergy (Mild, Verified 06/10/25 08:30) Rash Do you need a note to return to daycare/school/sports/work: Yes HPI HPI Comments History of Present Illness Details This is a 20-year-old male with no stated past medical history presenting for evaluation of an occasionally productive cough that he has had for the past 10 days. Patient also reports having a mild sore throat this started approximately 1 week after the cough. Patient denies having any fevers, chills, otalgia, hemoptysis, orthopnea or chest pain. Patient has not taken any medication for treatment of his symptoms. [facility] Medical History Spasmus nutans Ocular albinism History of broken finger Constipation Hx of fracture of leg Surgical History History of surgery Hx of eye surgery Family History Mother Ocular albinism Social History Housing: House Alcohol intake: current Alcohol intake frequency: holidays/special occasions only Patient Tobacco Use Status: Never used Tobacco e-Cigarette/Vaping Use: Never Used Second Hand Smoke Exposure: No Substance Use Type: Marijuana service: No Current occupational status: employed Current occupation: [employer]/ right hand dominant Cognitive needs: No Hearing needs: No Vision needs: Yes (Glasses) Review of Systems Const All systems reviewed & are unremarkable except as noted in HPI and below Reports no additional complaints, Denies body aches, Denies chills, Denies fatigue, Denies fever(s) and Denies headache(s) Eyes Reports no additional complaints ENT Reports no additional complaints, Denies otalgia, Denies facial pain, Denies headache(s), Denies mouth pain, Reports sore throat, Denies throat swelling and Denies tongue swelling Card Denies chest pain, Denies rapid heart rate and Denies dyspnea Resp Reports chest congestion, Reports cough, Denies hemoptysis, Denies excessive phlegm production and Denies dyspnea GI Reports no additional complaints Reports no additional complaints Musc Reports no additional complaints Skin/Breast Reports system reviewed and no additional complaints, except as documented Neuro Reports no additional complaints and Denies headache(s) Psych Reports no additional complaints Endo Reports no additional complaints and Denies fatigue [place]/Lymph Reports no additional complaints Aller/Immun Reports no additional complaints, Denies throat swelling and Denies tongue swelling Physical Exam Vital Signs: Last Vital Signs Temp 98.2 F 06/10/25 08:26 Pulse 74 06/10/25 08:26 BP 110/68 06/10/25 08:26 Pulse Ox 96 06/10/25 08:26 BMI result Body Mass Index 24.3 Patient is afebrile and is not hypoxic. Const General: cooperative, healthy appearing, comfortable, no acute distress, well developed, alert, awake and Physically active; No ill appearing Nutritional Appearance: average body habitus Orientation/consciousness: patient oriented x3 Limitations: no limitations HEENT Head: Yes normal to inspection and Yes normocephalic Ears: hearing grossly normal bilaterally, external ears normal, TM's normal bilaterally and EAC's normal General nose exam: Normal external nose present Face and sinus: Yes normal facial exam and Yes sinuses nontender Mouth: Normal oral and palatal mucosa present, moist mucous membranes and breath no malodorous Throat: Yes posterior oropharynx normal (There is no edema, erythema or exudates of the posterior oropharynx.), Yes uvula midline and No postnasal drainage Neck Lymphatic: no lymphadenopathy noted Resp Effort & Inspection: normal respiratory effort, able to speak in complete sentences, no audible wheezes, not tachypneic and no tripod positioning Auscultation: clear to auscultation bilaterally Cardio Rate: regular rate Rhythm: regular rhythm Neuro General: patient oriented x3 Psych Appearance: grossly normal Mental Status: mental status grossly normal Insight: Good insight present (Psych) Judgement: Good judgement present (Psych) Assessment & Plan Assessment & Plan (1) Acute upper respiratory infection: Comment: Patient is afebrile and well-appearing. Lungs are clear to auscultation bilaterally. Code(s): J06.9 - Acute upper respiratory infection, unspecified Plan: SARS panel is pending at this time. Patient is instructed to utilize Mucinex OTC daily and increase clear fluids as tolerated. Follow up only as needed. Orders: Orders SARS-CoV2/FLU/RSV Today J06.9 - Acute upper respiratory infection, unspecified Coding Level of Care Code Est Pt Level 3 (62717) Diagnoses Acute upper respiratory infection J06.9 Time Spent (min) 20
[2025-06-10 08:26] VITALS: BP 110/68; PULSE 74; TEMP 36.8; O2SAT 96; BMI 24.3
== END 2025-06-10 08:52 | disposition home or self-care (01) ==
PROVIDERS: Visit Provider Physician Assistant
DX: J06.9 Acute upper respiratory infection, unspecified (principal)

== ENCOUNTER 2025-06-10 08:24 | Outpatient (REF) | payer BC, SELFPAY ==
[2025-06-10 11:18] LABS: Resp Syncy Virus RNA Qual PCR NEGATIVE (Negative); SARS COV2 PCR INHOUSE NEGATIVE (Negative)
--- OUTSIDE RECORDS SUMMARY | 2025-06-10 11:58 | XMS_ITS | Encounter Summary ---
Author Organization [facility] Address [address] [place] [address] Phone Care Team Providers Care Poultry Hatchery Man Name Role Phone Rahel Caro MD Primary Care Provider Encounter Details Date Type Department Care Team (Late st Contact Info) Description 04/03/2017 Conversion Encounter [facility] [address] [place] [address] Social History Tobacco Use Types Packs/Day Years [...] on filedocumented in this encounter Care Teams Poultry Hatchery Man Relationship Specialty Start Date End Date Rahel Caro MD [address] [place] [address] PCP - General Pediatrics 06/18/23 02/24/24 documented as of this encounter
--- OUTSIDE RECORDS SUMMARY | 2025-06-10 11:58 | XMS_ITS | Clinical Summary ---
Author Organization [facility] Address [address] [place] [id number] Phone Care Team Providers Care Architecture Consultant Name Role Phone Unavailable Primary Care Provider [...] and anxious thhoughts. PLAN: Follow up with [facility] and bridge as necessary to outpatient therapy [...] and anxious thhoughts. PLAN: Follow up with [facility] and bridge as necessary to outpatient therapy [...] and anxious thhoughts. PLAN: Follow up with [facility] and bridge as necessary to outpatient therapy [...] Follow up with Dr Bruno ophthamology in [place] Assessment & Plan (08/28/2021 4:30 PM EST): [...] Date Last Done Comments Influenza Vaccines (#1) 2025 07/06/20, 06/20/2022, 05/25/2021, Additional history exists COVID-19 Vaccine (2024-2 6 season) 2025 07/06/2023, 06/20/2022, 07/18/2021, Additional history exists DTaP,Tdap,and [...]
== END 2025-06-10 08:25 | disposition home or self-care (01) ==
LOC: HO.LNP 08:24
PROVIDERS: Visit Provider Physician Assistant
DX: J06.9 Acute upper respiratory infection, unspecified (principal); J02.9 Acute pharyngitis, unspecified; R05.9 Cough, unspecified
CPT/HCPCS: 87637